=== PATIENT | female | born 1970 | race Caucasian/White ===

== ENCOUNTER 2019-12-27 18:05 | Emergency (ER) | payer SELFPAY ==
--- NOTE | 2019-12-27 18:27 | ERPHSYRPT ---
- History of Present Illness Time Seen by Provider: 12/27/19 18:26 Source: patient Exam Limitations: no limitations Physician History: Patient is a 49-year-old female with a past medical history significant for migraines for which she follows with neurology as an outpatient with Dr. Kothari presents with a chief complaint of a headache. Onset reportedly was around 3:00 this morning. She states that she awoke with a frontal headache that had progressed to got worse throughout the day. She endorsed having photophobia in addition to flashing lights in both of her visual osborn whenever she closes her eyes. She also endorsed having some nausea in addition to vomiting. The above symptoms are consistent with her prior migraine symptoms. She denies any syncope, near syncope, focal weakness, numbness, and neck pain and reportedly was taking her medication as prescribed as well as Tylenol with no relief in her symptoms. Because she did not experience any relief, she decided to come to the emergency department for further evaluation and management. Her headache was described as a diffuse sharp pain located over her entire head at this time. The pain seems to radiate from the front to the back and is constant and moderate to severe in severity. Poorly took the last dose of Tylenol at around 1500 afternoon. He denies taking anticoagulants or antiplatelets, specifically Plavix. Timing/Duration: today Associated Symptoms: nausea, vomiting, headaches, No shortness of breath, No chest pain, No fever, No loss of appetite, No syncope Allergies/Adverse Reactions: bee pollen Allergy (Severe, Verified 12/27/19 18:39) Swelling guaifenesin [From Mucinex] Allergy (Severe, Verified 12/27/19 18:39) Swelling honey Allergy (Severe, Verified 12/27/19 18:39) morphine Allergy (Severe, Verified 12/27/19 18:39) cardiac arrest Penicillins Allergy (Severe, Verified 12/27/19 18:39) Swelling Home Medications: Alprazolam 0.5 mg [xanAX 0.5 MG] 0.5 mg PO 12/27/19 [History] Propranolol HCl [Inderal LA] 160 mg PO DAILY 12/27/19 [History] Tizanidine HCl 4 mg [Zanaflex 4 MG] 4 mg PO DAILY 12/27/19 [History] Zolpidem Tartrate 10 mg PO DAILY 12/27/19 [History] - Review of Systems Constitutional: No Fever, No Chills, No Fatigue Eyes: Photophobia, Other (Flashing lights in visual osborn when closing eyes) Ears, Nose, & Throat: No Symptoms, Other (Phonophobia) Respiratory: No Cough, No Cyanosis, No Dyspnea Cardiac: No Symptoms Abdominal/Gastrointestinal: Nausea, Vomiting Musculoskeletal: No Symptoms Skin: No Symptoms Neurological: Headache, No Gait Changes, No Paralysis, No Parasthesia, No Sensory Changes, No Speech Changes Psychological: No Symptoms All Other Systems: Reviewed and Negative - Nursing Vital Signs Nursing Vital Signs: Initial Vital Signs Temperature 97.6 F 12/27/19 18:25 Pulse Rate 111 H 12/27/19 18:25 Respiratory Rate 20 12/27/19 18:25 Blood Pressure 153/115 12/27/19 18:25 O2 Sat by Pulse Oximetry 100 12/27/19 18:25 Pain Scale Pain Intensity 2 - Physical Exam General Appearance: mild distress, alert, other (The patient appeared to be uncomfortable and sitting in a dark room when I entered her room) Eye Exam: PERRL/EOMI, eyes nml inspection, photophobia, No scleral icterus, No pale conjunctivae, No EOM palsy/anisocoria Ears, Nose, Throat Exam: normal ENT inspection, TMs normal, pharynx normal, moist mucous membranes, No TM abnormal (R), No TM abnormal (L), No pharyngeal erythema, No tonsillar exudate Neck Exam: normal inspection, non-tender, supple, No meningismus, No JVD Respiratory Exam: normal breath sounds, lungs clear, airway intact, No chest tenderness, No respiratory distress Cardiovascular Exam: regular rate/rhythm, normal heart sounds, normal peripheral pulses, tachycardia, capillary refill <2 sec, No murmur, No friction rub, No gallop Gastrointestinal/Abdomen Exam: soft, No tenderness, No distention, No mass Pelvic Exam: not done Rectal Exam: deferred Extremity Exam: normal inspection, other (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, bicep flexion bilaterally, hHip flexion 4+ bilaterally, dorsi flexion and plantar flexion 4+ bilaterally) Neurologic Exam: alert, oriented x 3, cooperative, 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 tested, normal mood/affect, nml cerebellar function, sensation nml, other (No pronator drift, no ankle clonus, station to gross touch intact in the upper and lower extremities and equal bilaterally, biceps reflex was 2+ bilaterallyPatellar reflexes 2+ bilaterallyThere is no pronator drift.), No motor deficits, No sensory deficit, No disoriented, No confusion, No intoxicated appearance, No motor weakness, No facial droop, No slurred speech, No aphasia, No abnormal gait , No abnormal cerebellar tests, No EOM palsy - Course Nursing assessment & vital signs reviewed: Yes Ordered Tests: Active Orders 24 hr Category Date Time Status IV Insertion STAT Care 12/27/19 18:39 Active Medication Summary Discontinued Medications Generic Name Dose Route Start Last Admin Trade Name Freq PRN Reason Stop Dose Admin Diphenhydramine HCl 25 mg 12/27/19 18:42 12/27/19 18:51 Benadryl 50 Mg/Ml IV 12/27/19 18:43 25 mg STAT ONE Administration Diphenhydramine HCl Confirm 12/27/19 18:45 Benadryl 50 Mg/Ml Administered 12/27/19 18:46 Dose 50 mg .ROUTE .STK-MED ONE Sodium Chloride 1,000 mls @ 999 mls/hr 12/27/19 18:39 12/27/19 18:48 Sodium Chloride 0.9% 1000 Ml IV 12/27/19 19:39 999 mls/hr .Q1H1M STA Administration Sodium Chloride Confirm 12/27/19 18:46 Sodium Chloride 0.9% 1000 Ml Administered 12/27/19 18:47 Dose 1,000 mls @ ud .ROUTE .STK-MED ONE Ketorolac Tromethamine 30 mg 12/27/19 18:39 12/27/19 18:49 Toradol 30 Mg Injection IV 12/27/19 18:40 30 mg STAT ONE Administration Ketorolac Tromethamine Confirm 12/27/19 18:45 Toradol 30 Mg Injection Administered 12/27/19 18:46 Dose 30 mg .ROUTE .STK-MED ONE Metoclopramide HCl 10 mg 12/27/19 18:39 12/27/19 18:49 Reglan 10 Mg/2 Ml IV 12/27/19 18:40 10 mg STAT ONE Administration Metoclopramide HCl Confirm 12/27/19 18:45 Reglan 10 Mg/2 Ml Administered 12/27/19 18:46 Dose 10 mg .ROUTE .STK-MED ONE Ondansetron HCl 4 mg 12/27/19 18:39 12/27/19 18:50 Zofran 4 Mg/2 Ml Vial IV 12/27/19 18:40 4 mg STAT ONE Administration Ondansetron HCl Confirm 12/27/19 18:45 Zofran 4 Mg/2 Ml Vial Administered 12/27/19 18:46 Dose 4 mg .ROUTE .STK-MED ONE - Progress Progress: improved Progress Note: 12/27/19 19:47 The patient reportedly was feeling better and pain was a 1/10. The patient stated she was ready to go home. 12/27/19 20:29 Toxic in appearance. The patient has no neuro deficits at this time. She currently has no red flag features for headache at this time and her symptoms were described as her typical migraine symptoms. Due to this and her reassuring exam, I believe the patient is likely suffering from her typical migraine and I will defer neurocranial imaging at this time, specifically head CT and MRI given my low suspicion for intracranial hemorrhage, mass, infectious etiology, or CVT. She was treated symptomatically for a migraine and upon reassessment endorsed that she was feeling better and ready to be discharged home. She was discharged home and instructed to take her prescribed medicines as instructed and to call and follow-up with her neurologist if able by the end of this week. ED return precautions for headache was given. The patient agreed with and verbally understood the discharge plan. Counseled pt/family regarding: diagnosis, need for follow-up - Departure Departure Disposition: Home Clinical Impression: Migraine Condition: Stable Critical Care Time: No Referrals: HARIS OSBORN [Primary Care Provider] - SAURABH KOTHARI [CONSULTING PHYSICIAN] - Instructions: Migraine Headaches in Adults Additional Instructions: Please follow-up with your neurologist if able in the next 1-2 days.
[2019-12-27] MEDS ORDERED: Reglan 10 MG/2 ML IV ONE (18:39)
[2019-12-27] MEDS ORDERED: Zofran 4 MG/2 ML VIAL IV ONE (18:39)
[2019-12-27] MEDS ORDERED: TORAdol 30 mg Injection IV ONE (18:39)
[2019-12-27] MEDS ORDERED: Sodium Chloride 0.9% 1000 ML 1,000 ML IV STA (18:39)
[2019-12-27] MEDS ORDERED: BENADRYL 50 MG/ML IV ONE (18:42)
[2019-12-27] MEDS ORDERED: Reglan 10 MG/2 ML ONE (18:45)
[2019-12-27] MEDS ORDERED: TORAdol 30 mg Injection ONE (18:45)
[2019-12-27] MEDS ORDERED: BENADRYL 50 MG/ML ONE (18:45)
[2019-12-27] MEDS ORDERED: Zofran 4 MG/2 ML VIAL ONE (18:45)
[2019-12-27] MEDS ORDERED: Sodium Chloride 0.9% 1000 ML 1,000 ML ONE (18:46)
[2019-12-27 20:07] VITALS: O2SAT 95
[2019-12-27 20:12] VITALS: BP 142/91; PULSE 96
== END 2019-12-27 20:13 | disposition home or self-care (01) ==
LOC: ED 18:05
DX: G43.909 Migraine, unspecified, not intractable, without status migrainosus (principal)
CPT/HCPCS: 36000; 96374; 96375; 99284; J1200; J1885; J2405